=== PATIENT | female | born 1945 | race Caucasian/White ===

== ENCOUNTER 2019-01-27 23:48 | Inpatient (IN) | payer OTHER ==
[2019-01-28] MEDS ORDERED: ONDANSETRON 4 MG/2 ML VIAL ONE (00:14)
[2019-01-28] MEDS ORDERED: MORPHINE 4 MG/ML SYR ONE (00:14)
[2019-01-28] MEDS ORDERED: NA CHLORIDE 0.9% 500 ML ONE (00:14)
[2019-01-28 00:47] LABS: Absolute Lymphocytes (CBC) 2.8 K/uL (0.7-4.9); Basophils % 1.2 % (0-1.3); MPV 7.3 fL (7.6-11.3); RBC Red Blood Cell Count 4.34 M/uL (3.86-4.86)
[2019-01-28 00:52] LABS: Protime INR 1.02
[2019-01-28 01:10] LABS: ALT/SGPT 33 U/L (12-78); AST/SGOT 24 U/L (15-37); Albumin 3.7 g/dL (3.4-5.0); Alkaline Phosphatase 151 U/L (45-117); BUN Blood Urea Nitrogen 15 mg/dL (7-18); Bicarbonate 22 mmol/L (21-32); Bilirubin Direct < 0.1 mg/dL (0-0.2); Bilirubin Total 0.4 mg/dL (0.2-1.0); Glucose Level 114 mg/dL (74-106); Lipase 128 U/L (73-393); Magnesium 1.8 mg/dL (1.8-2.4); NT PRO-BNP 29 pg/mL (<125); Potassium 3.7 mmol/L (3.5-5.1); Protein, Total 7.6 g/dL (6.4-8.2); Sodium Level 139 mmol/L (136-145); Troponin (Emerg Dept Use Only) < 0.02 ng/mL (0.0-0.045)
[2019-01-28 01:52] LABS: Urine Blood NEGATIVE (NEG); Urine Glucose NEGATIVE (NEG); Urine Protein NEGATIVE (NEG); Urine Specific Gravity 1.015 (1.005-1.030)
[2019-01-28 01:56] LABS: Urine Bacteria >50 /HPF (<20); Urine Culture Reflex Order REFLEXED; Urine RBC NONE SEEN /HPF (NONE SEEN)
[2019-01-28] MEDS ORDERED: CEFTRIAXONE/SWI 1gm 1 GM/10 ML SYR ONE (02:22)
--- NOTE | 2019-01-28 02:27 | ER ---
Nurse's Notes [facility] Name: Jennifer Moeller Age: 73 yrs Sex: Female : 1945 Arrival Date: 01/27/2019 Time: 23:49 Bed 20 Private MD: Diagnosis: Acute cholecystitis Presentation: 01/27 23:55 Presenting complaint: Patient states: that she has been having right upper quad pain fc since Thursday. Went to another hospital and Was told her gallbladder is bad. Her PCP scheduled her for a HIDA scan 01/28/2019 am. Transition of care: patient was not received from another setting of care. Onset of symptoms was January 22, 2019. Risk Assessment: Do you want to hurt yourself or someone else? Patient reports no desire to harm self or others. Initial Sepsis Screen: Does the patient meet any 2 criteria? No. Patient's initial sepsis screen is negative. Does the patient have a suspected source of infection? No. Patient's initial sepsis screen is negative. Care prior to arrival: None. 23:55 Method Of Arrival: Wheelchair 23:55 Acuity: NEFTALI 3 fc Triage Assessment: 01/28 00:42 General: Behavior is calm, cooperative, appropriate for age. Historical: - Allergies: 00:07 Codeine; fc 00:07 Iodine; fc 00:07 Ciprofloxacin; fc - Home Meds: 00:07 None [Active]; fc - PMHx: 00:07 Diabetes - NIDDM; fc - PSHx: 00:07 Hysterectomy; fc - Immunization history:: Last tetanus immunization: up to date Flu vaccine is not up to date. - Social history:: Smoking status: Patient/guardian denies using tobacco, Patient uses alcohol, occasionally. - Ebola Screening: : Patient negative for fever greater than or equal to 101.5 degrees Fahrenheit, and additional compatible Ebola Virus Disease symptoms Patient denies exposure to infectious person Patient denies travel to an Ebola-affected area in the 21 days before illness onset. Screenin/10 23:55 Abuse screen: Denies threats or abuse. Nutritional screening: No deficits noted. fc Tuberculosis screening: No symptoms or risk factors identified. Fall Risk None identified. Assessment: 01/28 00:40 General: Appears in no apparent distress. uncomfortable. Pain: Complains of pain in wh right upper quadrant Pain radiates to back Pain currently is 10 out of 10 on a pain scale. Quality of pain is described as aching, Pain began 2-3 days ago. Neuro: Level of Consciousness is awake, alert, obeys commands, Oriented to person, place, time, situation, Appropriate for age. Cardiovascular: Heart tones S1 S2 Rhythm is regular. Respiratory: Airway is patent Respiratory effort is even, unlabored, Respiratory pattern is regular, symmetrical, Breath sounds are clear bilaterally. GI: Abdomen is flat, non-distended, Bowel sounds present X 4 quads. Abd is soft Abdomen is tender to palpation in right upper quadrant. : No signs and/or symptoms were reported regarding the genitourinary system. EENT: No signs and/or symptoms were reported regarding the EENT system. Derm: Skin is intact, is healthy with good turgor, Skin is pink, warm \T\ dry. normal. Musculoskeletal: Circulation, motion, and sensation intact. 02:02 Reassessment: Patient appears in no apparent distress at this time. No changes from previously documented assessment. Patient and/or family updated on plan of care and expected duration. Pain level reassessed. Patient is alert, oriented x 3, equal unlabored respirations, skin warm/dry/pink. Patient states feeling better. Patient states symptoms have improved. 03:10 Reassessment: Patient appears in no apparent distress at this time. No changes from previously documented assessment. Patient and/or family updated on plan of care and expected duration. Pain level reassessed. Patient is alert, oriented x 3, equal unlabored respirations, skin warm/dry/pink. Dr Franklin at bedside explaining need for admit. 03:39 Reassessment: Patient denies pain at this time. Patient states feeling better. Patient wh states symptoms have improved. Vital Signs: 01/27 23:55 BP 176 / 99; Pulse 81; Resp 18; Temp 97.6(O); Pulse Ox 99% on R/A; Weight 73.48 kg (R); Height 5 ft. 5 in. (165.10 cm) (R); Pain 01/27; 01/28 00:15 BP 178 / 76; Pulse 75; Resp 18; Pulse Ox 100% ; wh 02:02 BP 125 / 69; Pulse 67; Resp 18; Pulse Ox 98% on R/A; wh 03:15 BP 124 / 50; Pulse 64; Resp 18; Pulse Ox 98% ; 01/27 23:55 Body Mass Index 26.96 (73.48 kg, 165.10 cm) ED Course: 01/27 23:49 Patient arrived in ED. ds1 23:53 Blu Mena PA is PHCP. cp 23:53 Rl Fernandez MD is Attending Physician. cp 23:55 Arm band placed on Patient placed in an exam room, on a stretcher. fc 23:55 Patient has correct armband on for positive identification. Placed in gown. Bed in low fc position. Call light in reach. Side rails up X 1. Pulse ox on. NIBP on. 23:55 No provider procedures requiring assistance completed. fc 23:57 Susan Fuchs is Primary Nurse. 01/28 00:05 Triage completed. 00:35 Inserted saline lock: 20 gauge in left forearm, using aseptic technique. Blood wh collected. 00:49 Radiology exam delayed due to lab results not completed at this time. (BUN/Creatinine). [id number] 00:53 XRAY Chest (1 view) In Process Unspecified. EDMS 01:32 CT Abd/Pelvis - Without Contrast In Process Unspecified. EDMS 02:25 Angel Franklin MD is Hospitalizing Provider. cp 03:40 Patient admitted, IV remains in place. Administered Medications: 00:34 Drug: morphine 4 mg {Note: RASS 0.} Route: IVP; Site: left forearm; 03:15 Follow up: Response: No adverse reaction; Nausea is decreased 03:16 Follow up: Response: Pain is decreased; RASS: Alert and Calm (0) 00:34 Drug: Zofran 4 mg Route: IVP; Site: left forearm; 03:17 Follow up: Response: No adverse reaction; Nausea is decreased 00:35 Drug: NS 0.9% 500 ml Route: IV; Rate: 500 ml/hr; Site: left forearm; 03:18 Follow up: Response: No adverse reaction; IV Status: Completed infusion 02:28 Drug: Rocephin 1 grams Route: IV; Rate: bolus; Site: left forearm; 03:17 Follow up: Response: No adverse reaction; IV Status: Completed infusion Outcome: 02:25 Decision to Hospitalize by Provider. cp 03:40 Admitted to Med/surg accompanied by tech, family with patient, via wheelchair, room wh 225, with chart, Report called to Annamarie Lino RN 03:40 Condition: good 03:40 Instructed on the need for admit. 03:41 Patient left the ED. Signatures: Dispatcher [employer] EDMS Aiyana Jane RN RN fc Sanford, Demi ds1 Blu Mena PA PA cp Habalo, Winsy Rebecca Cason6
--- NOTE | 2019-01-28 02:27 | EDPHYS ---
Physician Documentation [facility] Name: Jennifer Moeller Age: 73 yrs Sex: Female : 1945 Arrival Date: 01/27/2019 Time: 23:49 Bed 20 Private MD: ED Physician Rl Fernandez HPI: 01/28 00:05 This 73 yrs old Female presents to ER via Wheelchair with complaints of cp Gallbladder Pain. 00:05 The patient presents with abdominal pain in the right upper quadrant. cp 00:05 Onset: The symptoms/episode began/occurred 6 day(s) ago. cp 00:05 The symptoms radiate to back. Associated signs and symptoms: Pertinent positives: cp anorexia, nausea, Pertinent negatives: chest pain, dysuria, fever, vomiting. The symptoms are described as constant. Modifying factors: the symptoms are aggravated by movement, pressure. Severity of pain: in the emergency department the pain is unchanged despite home interventions. Historical: - Allergies: 00:07 Codeine; fc 00:07 Iodine; fc 00:07 Ciprofloxacin; fc - Home Meds: 00:07 None [Active]; fc - PMHx: 00:07 Diabetes - NIDDM; fc - PSHx: 00:07 Hysterectomy; fc - Immunization history:: Last tetanus immunization: up to date Flu vaccine is not up to date. - Social history:: Smoking status: Patient/guardian denies using tobacco, Patient uses alcohol, occasionally. - Ebola Screening: : Patient negative for fever greater than or equal to 101.5 degrees Fahrenheit, and additional compatible Ebola Virus Disease symptoms Patient denies exposure to infectious person Patient denies travel to an Ebola-affected area in the 21 days before illness onset. ROS: 00:10 Constitutional: Negative for body aches, chills, fever, poor PO intake. cp 00:10 Eyes: Negative for injury, pain, redness, and discharge. cp 00:10 ENT: Negative for drainage from ear(s), ear pain, sore throat, difficulty swallowing, difficulty handling secretions. 00:10 Cardiovascular: Negative for chest pain, edema, palpitations. 00:10 Respiratory: Negative for cough, shortness of breath, wheezing. 00:10 Abdomen/GI: Positive for abdominal pain, Negative for vomiting, diarrhea, constipation, black/tarry stool, rectal bleeding. 00:10 Back: Positive for radiated pain, Negative for injury or acute deformity, decreased range of motion. 00:10 : Negative for urinary symptoms. 00:10 Neuro: Negative for altered mental status, weakness. 00:10 All other systems are negative. Exam: 00:25 ECG was reviewed by the Attending Physician. cp 00:30 Constitutional: The patient appears in no acute distress, alert, awake, cp non-diaphoretic, non-toxic, well developed, well nourished, in obvious pain, uncomfortable. 00:30 Head/Face: Normocephalic, atraumatic. cp 00:30 Eyes: Periorbital structures: appear normal, Conjunctiva: normal, no exudate, no injection, Sclera: no appreciated abnormality, Lids and lashes: appear normal, bilaterally. 00:30 ENT: External ear(s): are unremarkable, Nose: is normal, Mouth: Lips: moist, Oral mucosa: pink and intact, moist, Posterior pharynx: is normal, airway is patent, no erythema, no exudate. 00:30 Chest/axilla: Inspection: normal, Palpation: is normal, no crepitus, no tenderness. 00:30 Cardiovascular: Rate: normal, Rhythm: regular, Edema: is not appreciated, JVD: is not appreciated. 00:30 Respiratory: the patient does not display signs of respiratory distress, Respirations: normal, no use of accessory muscles, no retractions, no splinting, no tachypnea, labored breathing, is not present, Breath sounds: are clear throughout, no decreased breath sounds, no stridor, no wheezing. 00:30 Abdomen/GI: Inspection: abdomen appears normal, Bowel sounds: active, all quadrants, Palpation: soft, in all quadrants, severe abdominal tenderness, in the right upper quadrant, rebound tenderness, is not appreciated, voluntary guarding, is elicited in the right upper quadrant. 00:30 Back: pain, that is moderate, ROM is normal. 00:30 Skin: no rash present. 00:30 Neuro: Orientation: to person, place \T\ time. Mentation: is normal, Motor: moves all fours, strength is normal. Vital Signs: 01/27 23:55 BP 176 / 99; Pulse 81; Resp 18; Temp 97.6(O); Pulse Ox 99% on R/A; Weight 73.48 kg (R); fc Height 5 ft. 5 in. (165.10 cm) (R); Pain 01/27; 01/28 00:15 BP 178 / 76; Pulse 75; Resp 18; Pulse Ox 100% ; wh 02:02 BP 125 / 69; Pulse 67; Resp 18; Pulse Ox 98% on R/A; wh 03:15 BP 124 / 50; Pulse 64; Resp 18; Pulse Ox 98% ; wh 01/27 23:55 Body Mass Index 26.96 (73.48 kg, 165.10 cm) fc MDM: 01/27 23:57 Patient medically screened. cp 01/28 00:30 Differential diagnosis: cholecystitis, Cholelithiasis, gastritis, gastroesophageal cp reflux disease, pancreatitis, Peptic Ulcer Disease, Perf. Duodenal Ulcer, Perf. Gastric Ulcer, Ureterolithiasis, urinary tract infection. 02:25 Data reviewed: vital signs, nurses notes, lab test result(s), EKG, radiologic studies, cp CT scan, plain films. 02:25 Test interpretation: by ED physician or midlevel provider: ECG, plain radiologic cp studies, chest xray negative for infiltrates. Counseling: I had a detailed discussion with the patient and/or guardian regarding: the historical points, exam findings, and any diagnostic results supporting the discharge/admit diagnosis, lab results, radiology results, the need for further work-up and treatment in the hospital. Response to treatment: the patient's symptoms have markedly improved after treatment. 01/28 00:11 Order name: Basic Metabolic Panel; Complete Time: : rr5 01/28 01:47 Interpretation: Normal except: GLUC 114; GFR 64. cp 01/28 00:11 Order name: CBC with Diff; Complete Time: 00:58 rr5 01/28 00:58 Interpretation: Normal except: WBC 12.6; MPV 7.3; NEUT A 8.3. cp 01/28 00:11 Order name: LFT's; Complete Time: : rr5 01/28 01:47 Interpretation: Normal except: ALK 151; GLOB 3.9; A/G 0.9. cp 01/28 00:11 Order name: Magnesium; Complete Time: :29 rr5 01/28 00:11 Order name: NT PRO-BNP; Complete Time: : rr5 01/28 00:11 Order name: PT-INR; Complete Time: 00:58 [facility] 01/28 00:11 Order name: Troponin (emerg Dept Use Only); Complete Time: 01:29 [facility] 01/28 01:47 Interpretation: TROPED < 0.02; Reviewed. 01/28 00:11 Order name: Lipase; Complete Time: 01:29 [facility] 01/28 01:48 Interpretation: Within normal limits: LIP 128. 01/28 00:11 Order name: XRAY Chest (1 view) [facility] 01/28 00:11 Order name: EKG; Complete Time: 00:12 5 01/28 00:14 Order name: EKG; Complete Time: 00:16 01/28 00:57 Order name: CT Abd/Pelvis - Without Contrast 01/28 00:59 Order name: Urine Microscopic Only; Complete Time: 02:18 01/28 02:18 Interpretation: Normal except: UWBC 5-10; UBACT >50. 01/28 01:48 Order name: Urine Dipstick--Ancillary (enter results); Complete Time: 01:56 em 01/28 01:56 Interpretation: Normal except: UESTR 1+. 01/28 01:57 Order name: Urine Culture [facility] 01/28 02:59 Order name: CONS Physician Consult [facility] 01/28 02:59 Order name: Urinalysis [facility] 01/28 00:11 Order name: Cardiac monitoring; Complete Time: 00:34 [facility] 01/28 00:11 Order name: EKG - Nurse/Tech; Complete Time: 00:34 [facility] 01/28 00:11 Order name: IV Saline Lock; Complete Time: 00:34 5 01/28 00:11 Order name: Labs collected and sent; Complete Time: 00:34 5 01/28 00:11 Order name: O2 Per Protocol; Complete Time: 00:33 [facility] 01/28 00:11 Order name: O2 Sat Monitoring; Complete Time: 00:33 [facility] 01/28 00:14 Order name: Cardiac monitoring; Complete Time: 00:33 01/28 00:14 Order name: EKG - Nurse/Tech; Complete Time: 00:33 cp 01/28 00:14 Order name: IV Saline Lock; Complete Time: 00:33 01/28 00:14 Order name: Labs collected and sent; Complete Time: 00:33 cp 01/28 00:14 Order name: O2 Per Protocol; Complete Time: 00:33 cp 01/28 00:14 Order name: O2 Sat Monitoring; Complete Time: 00:33 cp 01/28 00:59 Order name: Urine Dipstick-Ancillary (obtain specimen); Complete Time: 01:45 cp 01/28 02:59 Order name: NPO EDMS EC:25 Rate is 75 beats/min. Rhythm is regular. NC interval is normal. QRS interval is normal. cp QT interval is normal. Interpreted by me. Reviewed by me. Administered Medications: 00:34 Drug: morphine 4 mg {Note: RASS 0.} Route: IVP; Site: left forearm; 03:15 Follow up: Response: No adverse reaction; Nausea is decreased 03:16 Follow up: Response: Pain is decreased; RASS: Alert and Calm (0) 00:34 Drug: Zofran 4 mg Route: IVP; Site: left forearm; 03:17 Follow up: Response: No adverse reaction; Nausea is decreased 00:35 Drug: NS 0.9% 500 ml Route: IV; Rate: 500 ml/hr; Site: left forearm; 03:18 Follow up: Response: No adverse reaction; IV Status: Completed infusion 02:28 Drug: Rocephin 1 grams Route: IV; Rate: bolus; Site: left forearm; 03:17 Follow up: Response: No adverse reaction; IV Status: Completed infusion Disposition: 06:33 Co-signature as Attending Physician, Rl Fernandez MD. rn Disposition: 01/28/19 02:25 Hospitalization ordered by Angel Franklin for Inpatient Admission. Preliminary diagnosis is Acute cholecystitis. - Bed requested for Telemetry/MedSurg (Inpatient). - Status is Inpatient Admission. - Condition is Stable. - Problem is new. - Symptoms have improved. UTI on Admission? Yes Signatures: Dispatcher [employer] EDSD Aiyana Jaen RN RN fc Nieto, Roman, MD MD rn Page, Corey, PA PA cp Habalo, Winsy Go Emanuel RN RN rr5 Corrections: (The following items were deleted from the chart) 00:58 00:58 Normal except: WBC 12.6; MPV 7.3. cp cp 01:01 00:16 Chest Single View+RAD.RAD.BRZ ordered. EDMS EDMS 01:05 00:16 PROTIME (+INR)+COAG.LAB.BRZ ordered. EDMS EDMS 01:06 00:16 CBC+H.LAB.BRZ ordered. EDMS EDMS 01:07 00:16 BASIC METABOLIC PANEL+C.LAB.BRZ ordered. EDMS EDMS 01:07 00:16 HEPATIC FUNCTION+C.LAB.BRZ ordered. EDMS EDMS 01:07 00:16 MAGNESIUM+C.LAB.BRZ ordered. EDMS EDMS 01:07 00:16 PROBNP+C.LAB.BRZ ordered. EDSD EDMS 01:07 00:16 TROPONIN (EMERG DEPT USE ONLY)+C.LAB.BRZ ordered. EDSD EDMS 01:32 00:12 Abdomen Pelvis W Con+CT.RAD.BRZ ordered. EDSD EDMS 02:58 02:25 Hospitalization Ordered by Angel Franklin MD for Inpatient Admission. Preliminary rr5 diagnosis is Acute cholecystitis. Bed requested for Telemetry/MedSurg (Inpatient). Status is Inpatient Admission. Condition is Stable. Problem is new. Symptoms have improved. UTI on Admission? Yes. cp 03:41 02:58 01/28/2019 02:25 Hospitalization Ordered by Angel Franklin MD for Inpatient Admission. Preliminary diagnosis is Acute cholecystitis. Bed requested for Telemetry/MedSurg (Inpatient). Status is Inpatient Admission. Condition is Stable. Problem is new. Symptoms have improved. UTI on Admission? Yes. rr5
[2019-01-28] MEDS ORDERED: ACETAMINOPHEN 500 MG TAB PO PRN (02:56)
[2019-01-28] MEDS ORDERED: ONDANSETRON 4 MG/2 ML VIAL IV PRN (02:56)
[2019-01-28] MEDS ORDERED: ALPRAZOLAM 0.25 MG TABLET PO PRN (02:56)
[2019-01-28] MEDS ORDERED: MORPHINE 4 MG/ML SYR IV PRN (02:59)
[2019-01-28] MEDS: NA CHLORIDE 0.9% 1,000 ML IV SCH ×2 (03:00→13:00)
[2019-01-28 03:44] VITALS: BMI 28.4
[2019-01-28] MEDS ORDERED: FENTANYL CITR 100 MCG/2 ML IV PRN (04:21)
[2019-01-28] MEDS ORDERED: PIPER/TAZO/NS 3.375gm 3.375 GM/100 ML BAG IVPB SCH (06:00)
--- NOTE | 2019-01-28 08:19 | RAD REPORT ---
EXAM DESCRIPTION: Love Single View01/28/2019 12:53 am CLINICAL HISTORY: Abdominal pain COMPARISON: none FINDINGS: The lungs appear clear of acute infiltrate. The heart is borderline enlarged IMPRESSION: No acute abnormalities displayed
--- NOTE | 2019-01-28 08:22 | P.HP ---
Certification for Inpatient Patient admitted to: Inpatient With expected LOS: >2 Midnights Patient will require the following post-hospital care: None Practitioner: I am a practitioner with admitting privileges, knowledge of patient current condition, hospital course, and medical plan of care. Services: Services provided to patient in accordance with Admission requirements found in Title 42 Section 412.3 of the Code of Federal Regulations Patient History Date of Service: 01/28/19 Reason for admission: Acute cholecystitis History of Present Illness: Patient is a 73-year-old female came to the hospital with abdominal pain. She has been having symptoms on an off for the last year. Her symptoms pretty much worse so she came back into the ER for further evaluation. In the emergency room her workup included labs and CT scan. The labs were essentially unremarkable except for mildly elevated alkaline phosphatase. However, her CT scan revealed possible acute cholecystitis. General surgery was notified. Patient was admitted to the hospital for further evaluation. Possible HIDA scan this morning. May need ultrasound pending surgery evaluation. Allergies ciprofloxacin Allergy (Verified 01/28/19 04:12) Itching/Hives/Rash codeine Allergy (Verified 01/28/19 04:13) Shortness of breath iodine Adverse Reaction (Verified 01/28/19 04:11) Nausea/Vomiting Home Medications: Methocarbamol 500 mg PO QID MDD 7 days 01/28/19 Nitrofurantoin Monohyd/M-Cryst [Nitrofurantoin [place]-Mcr 100 mg] 100 mg PO Q12HR MDD 15 days 01/28/19 - Past Medical/Surgical History Has patient received pneumonia vaccine in the past: No Diabetic: Yes -: Diabetes -: Hysterectomy - Family History Father Medical History: Cancer, Other (see notes) Notes: Ca of throat,rectum Mother Medical History: Cancer, Other (see notes) Notes: Panic attacks. Ca breast - Social History Smoking Status: Never smoker Alcohol use: Yes CD- Drugs: No Caffeine use: Yes Place of Residence: Home Review of Systems 10-point ROS is otherwise unremarkable Physical Examination - Vital Signs Temperature: 96.8 F Blood Pressure: 148/68 Pulse: 67 Respirations: 16 Pulse Ox (%): 99 - Physical Exam General: Alert, In no apparent distress, Oriented x3 HEENT: Atraumatic, PERRLA, Mucous membr. moist/pink, EOMI, Sclerae nonicteric Neck: Supple, 2+ carotid pulse no bruit, No LAD, Without JVD or thyroid abnormality Respiratory: Clear to auscultation bilaterally, Normal air movement Cardiovascular: Regular rate/rhythm, Normal S1 S2, No murmurs Gastrointestinal: Normal bowel sounds, Soft and benign, Non-distended, No rebound, No guarding, Tenderness Musculoskeletal: No clubbing, No swelling, No tenderness Integumentary: No rashes Neurological: Normal gait, Normal speech, Normal strength at 5/5 x4 extr, Normal tone, Sensation intact, Cranial nerves 3-12 intact, Normal affect Lymphatics: No axilla or inguinal lymphadenopathy - Studies Laboratory Data (last 24 hrs) 01/28/19 00:14: PT Cancelled, INR Cancelled 01/28/19 00:14: WBC Cancelled, Hgb Cancelled, Hct Cancelled, Plt Count Cancelled 01/28/19 00:14: Sodium Cancelled, Potassium Cancelled, BUN Cancelled, Creatinine Cancelled, Glucose Cancelled, Magnesium Cancelled, Total Bilirubin Cancelled, AST Cancelled, ALT Cancelled, Alkaline Phosphatase Cancelled 01/28/19 00:10: PT 12.0, INR 1.02 01/28/19 00:10: WBC 12.6 H, Hgb 14.3, Hct 41.0, Plt Count 367 01/28/19 00:10: Sodium 139, Potassium 3.7, BUN 15, Creatinine 0.87, Glucose 114 H, Magnesium 1.8, Total Bilirubin 0.4, AST 24, ALT 33, Alkaline Phosphatase 151 H, Lipase 128 Assessment & Plan - Problems (Diagnosis) (1) Acute cholecystitis Current Visit: Yes Status: Acute (2) DM2 (diabetes mellitus, type 2) Current Visit: Yes Status: Acute - Plan Plan: 1. IV hydration 2. IV antibiotics 3. Pain control 4. Surgery consultation 5. Further diagnostic studies per surgery 6. Possible laparoscopic cholecystectomy pending evaluation per General surgery 7. GI and DVT prophylaxis Discharge Plan: Home Plan to discharge in: Greater than 2 days - Advance Directives Does patient have a Living Will: No Does patient have a Durable POA for Healthcare: No - Code Status/Comfort Care Code Status Assessed: Yes Code Status: Full Code Critical Care: No Time Spent Managing PTS Care (In Minutes): 45
--- NOTE | 2019-01-28 11:25 | CON ---
Date of Consultation: 01/28/2019 Brief History Of Present Illness: The patient is a 73-year-old female who came to the hosp ital with abdominal pain. She has been having symptoms off and on for the last year, but never of th is level of severity. The pain was predominantly in the epigastric area with radiation to the right upper quadrant and radiation through to her back. She had described this with never with this level of intensity. She went to see her primary medical doctor who ordered a HIDA scan, however, she did n ot have time to get the HIDA scan performed on an emergent basis and as such, she had another episode of pain and came to the emergency room with the above-stated complaints. Past Medical History: Significant for diabetes. Past Surgical History: She had hysterectomy. Allergies: TO CIPRO, CODEINE, IODINE. Home Medications: Include methocarbamol, nitrofurantoin. Social History: She denies smoking, only uses alcohol recreationally. Denies any recreational drug use of any kind. Review of Systems: A 10-point review of systems other than HPI, denies. Physical Examination: Vital Signs: At the time of my examination, her BMI is 28.4. Her vital signs were blood pressure 14 0/68, pulse of 67, respiratory rate 16, temperature 96.8. General: She is awake, alert, oriented. Psychiatric: She is appropriate and conversive. HEENT: She is normocephalic. Sclerae are anicteric. Her mucous membranes are moist. Oropharynx cl ear. Neck: Supple. No JVD. Chest: Normal expansion and excursion. Cardiovascular: Regular rate and rhythm. Pulmonary: Clear to auscultation bilaterally. Abdomen: Soft with mild right upper quadrant tenderness to palpation. Positive epigastric tendernes s to palpation. Negative Gamble sign at this time. No focal peritoneal signs. Extremities: No clubbing, cyanosis, or edema. Skin: Warm and dry. Laboratory Data: Reveals a white blood cell count of 12.6, hemoglobin is 14.3, hematocrit of 41.0, p latelet count is 367. Her neutrophils were 66%. Her PT is 12.0. Her sodium is 139, potassium 3.7, chloride 106, carbon dioxide 22, BUN 15, creatinine 0.8, glucose is 114. Her magnesium 1.8, total bi lirubin 0.4, direct component less than 0.1, AST 24, ALT 33, alkaline phosphatase of 151, lipase is 1 28. UA showed 5 to 10 white blood cells and greater than 50 bacteria. She had an abdomen and pelvis CT performed, which was officially read as gallstones with a mildly distended gallbladder, questiona ble subtle infiltrates and a pericholecystic fat in the setting of early acute cholecystitis. Consid er ultrasound for further evaluation. No gallbladder wall thickening. Assessment And Plan: This is a 73-year-old female, who comes in with signs of likely acute cholecyst itis: 1.IV fluid hydration. 2.Antibiotic coverage with Zosyn 3.375. 3.Patient is scheduled for HIDA scan. We will follow up with this. 4.I have explained the risks, benefits, alternatives of laparoscopic, possible open cholecystectomy including but not limited to bleeding, infection, injury to bile ducts, intestines, need for further operation or procedures. Patient agrees to proceed as indicated. ALISON/JERED Voice ID: [id number] Report ID: [id number]
--- NOTE | 2019-01-28 11:26 | EKG ---
Test Date: 2019-01-28 Test Time: 00:17:27 Dice Dealer: BASILIO MEASUREMENT RESULTS: Intervals: Rate: 75 OR: 162 QRSD: 72 QT: 398 QTc: 444 Huger: P: 59 OR: 162 QRS: 36 T: 56 INTERPRETIVE STATEMENTS: Normal sinus rhythm Low voltage QRS Borderline ECG No previous ECG available for comparison Electronically Signed On 01-28-19 11:26:24 CDT by Will Young
--- NOTE | 2019-01-28 11:40 | P.PN ---
Subjective Date of Service: 01/28/19 Chief Complaint: Acute cholecystitis Subjective: No new changes Patient seen and examined. She denies abdominal pain at the moment and want to eat. She has been afebrile. Physical Examination - Vital Signs Temperature: 96.8 F Blood Pressure: 148/68 Pulse: 67 Respirations: 16 Pulse Ox (%): 99 - Physical Exam General: Alert, In no apparent distress, Oriented x3 HEENT: Mucous membr. moist/pink Neck: Supple, JVD not distended Respiratory: Clear to auscultation bilaterally, Normal air movement Cardiovascular: No edema, Normal pulses, Regular rate/rhythm, Normal S1 S2, No murmurs Capillary refill: <2 Seconds Gastrointestinal: Normal bowel sounds, Soft and benign, Non-distended, Tenderness (Mild epigastric tenderness) Musculoskeletal: No swelling Integumentary: No rashes - Studies Laboratory Data (last 24 hrs) 01/28/19 00:14: PT Cancelled, INR Cancelled 01/28/19 00:14: WBC Cancelled, Hgb Cancelled, Hct Cancelled, Plt Count Cancelled 01/28/19 00:14: Sodium Cancelled, Potassium Cancelled, BUN Cancelled, Creatinine Cancelled, Glucose Cancelled, Magnesium Cancelled, Total Bilirubin Cancelled, AST Cancelled, ALT Cancelled, Alkaline Phosphatase Cancelled 01/28/19 00:10: PT 12.0, INR 1.02 01/28/19 00:10: WBC 12.6 H, Hgb 14.3, Hct 41.0, Plt Count 367 01/28/19 00:10: Sodium 139, Potassium 3.7, BUN 15, Creatinine 0.87, Glucose 114 H, Magnesium 1.8, Total Bilirubin 0.4, AST 24, ALT 33, Alkaline Phosphatase 151 H, Lipase 128 Assessment And Plan - Current Problems (Diagnosis) (1) Acute cholecystitis Current Visit: Yes Status: Acute (2) DM2 (diabetes mellitus, type 2) Current Visit: Yes Status: Acute - Plan HIDA scan is pending Patient seen by Dr. Rios and planning a cholecystectomy pending HIDA scan result. Continue IV Zosyn. Diabetes is diet controlled.
--- NOTE | 2019-01-28 11:58 | RAD REPORT ---
EXAM DESCRIPTION: NM - Hepatobiliary System Imagin - 01/28/2019 11:34 am CLINICAL HISTORY: Abdominal pain TECHNIQUE: The patient was administered 6.2 millicuries technetium Choletec intravenous and images o f the abdomen obtained for approximately 3 hours and 10 minutes. FINDINGS: Liver demonstrates prompt radiotracer uptake. No activity is seen within the gallbladder throughout the examination. Radiotracer activity is seen within small bowel. IMPRESSION: No radiotracer activity visualized within the gallbladder probably indicating acute chol ecystitis
[2019-01-28] MEDS: PIPER/TAZO/NS 3.375gm 3.375 GM/100 ML BAG IVPB SCH (17:26)
[2019-01-28] MEDS: ENOXAPARIN 40 MG/0.4 ML SQ SCH (17:31)
[2019-01-28] MEDS ORDERED: MAGNESIUM SULFATE 1 gm IVPB 1 GM/100 ML BAG IV ONE (21:00)
[2019-01-28] MEDS ORDERED: POTASSIUM CL SA 10 MEQ TAB PO ONE (21:00)
[2019-01-29] MEDS: PIPER/TAZO/NS 3.375gm 3.375 GM/100 ML BAG IVPB SCH ×3 (01:32→17:36)
[2019-01-29 05:01] LABS: Absolute Lymphocytes (CBC) 2.8 K/uL (0.7-4.9); Basophils % 0.7 % (0-1.3); Hematocrit 40.9 % (36.0-45.0); Lymphocytes % 33.3 % (15.3-44.8); MPV 7.3 fL (7.6-11.3); RBC Red Blood Cell Count 4.24 M/uL (3.86-4.86)
[2019-01-29 05:08] LABS: Albumin 3.2 g/dL (3.4-5.0); Bilirubin Total 0.9 mg/dL (0.2-1.0); Potassium 4.4 mmol/L (3.5-5.1); Protein, Total 6.6 g/dL (6.4-8.2)
[2019-01-29] MEDS: ENOXAPARIN 40 MG/0.4 ML SQ SCH (08:17)
[2019-01-29] MEDS ORDERED: BUPIVACA 0.5%/EPI 0.0005%/PF 30 ML VIAL ONE (08:35)
[2019-01-29] MEDS ORDERED: MIDAZOLAM HCL 2 MG/2 ML INJ ONE (08:43)
[2019-01-29] MEDS ORDERED: FENTANYL CITR 100 MCG/2 ML ONE (08:43)
[2019-01-29] MEDS ORDERED: PROPOFOL 200 MG/20 ML VIAL IV ONE (08:43)
[2019-01-29] MEDS ORDERED: GLYCOPYRROLATE 0.2 MG/ML SYR ONE (08:43)
[2019-01-29] MEDS ORDERED: ROCURONIUM 50 MG/5 ML VIAL IV ONE (08:44)
[2019-01-29] MEDS ORDERED: KETOROLAC 30 MG/ML INJ ONE (08:44)
[2019-01-29] MEDS ORDERED: LIDOCAINE 1% MPF 5 ML VIAL ONE (08:44)
[2019-01-29] MEDS ORDERED: NEOSTIGMINE 1 MG/ML -10 ML VIAL ONE (08:44)
[2019-01-29] MEDS ORDERED: ONDANSETRON 4 MG/2 ML VIAL ONE (08:44)
[2019-01-29] MEDS ORDERED: MORPHINE 10 MG/ML VIAL ONE (08:44)
[2019-01-29] MEDS ORDERED: Ringers Lactate 1,000 ML IV ONE (08:51)
--- NOTE | 2019-01-29 10:16 | P.OP ---
Preoperative diagnosis: Acute Cholecystitis Postoperative diagnosis: Acute Cholecystitis Primary procedure: Laparoscopic Cholecystectomy Anesthesia: GETA + Local Estimated blood loss: <5cc Specimen: Gallbladder Findings: Gross Inflammation, Thick Adhesions Complications: None Transferred to: Recovery Room Condition: Good
[2019-01-29] MEDS: HYDROMORPHONE HCL 1 MG/ML INJ ONE ×2 (10:40→10:45)
--- NOTE | 2019-01-29 10:44 | P.PN ---
Subjective Date of Service: 01/29/19 Chief Complaint: Acute cholecystitis Patient seen and examined. She denies abdominal pain at the moment. She has been afebrile. Noted her liver enzymes elevated today. Physical Examination - Vital Signs Temperature: 97.2 F Blood Pressure: 136/67 Pulse: 70 Respirations: 20 Pulse Ox (%): 96 - Physical Exam General: Alert, In no apparent distress, Oriented x3 HEENT: Mucous membr. moist/pink Neck: Supple, JVD not distended Respiratory: Clear to auscultation bilaterally, Normal air movement Cardiovascular: No edema, Regular rate/rhythm, Normal S1 S2, No murmurs Gastrointestinal: Normal bowel sounds, Soft and benign, Non-distended, No tenderness Musculoskeletal: No swelling Integumentary: No rashes Assessment And Plan - Current Problems (Diagnosis) (1) Acute cholecystitis Current Visit: Yes Status: Acute (2) DM2 (diabetes mellitus, type 2) Current Visit: Yes Status: Acute (3) Elevated LFTs Current Visit: Yes Status: Acute - Plan HIDA scan highly suggestive of acute cholecystitis. Laparoscopic cholecystectomy performed today. Monitor LFT for improvement, otherwise patient will need an MRCP to evaluate for common bile duct for stones. Continue IV Zosyn. Diet resumption per Surgery. Pain management.
[2019-01-29] MEDS: MEPERIDINE HCL 25 MG/0.5 ML ONE ×2 (10:53→11:05)
[2019-01-29] MEDS ORDERED: ACETAMINOPHEN 500 MG TAB ONE (17:31)
[2019-01-29] MEDS: NA CHLORIDE 0.9% 1,000 ML IV SCH (19:00)
--- NOTE | 2019-01-29 20:32 | OP ---
Date of Procedure: 01/29/2019 Surgeon: Corey Rios MD, Preoperative Diagnosis: Acute calculous cholecystitis. Postoperative Diagnosis: Acute calculous cholecystitis. Procedure Performed: Laparoscopic cholecystectomy. Anesthesia: General endotracheal plus local and 0.5% Marcaine with epinephrine. Estimated Blood Loss: Less than 5 mL. Specimen: Gallbladder. Findings: 1.Grossly inflamed gallbladder. 2.Thick fibrous adhesions between the omentum and the anterior gallbladder extending all the way teodoro n to the triangle of Calot. 3.Thick viscous bile unable to be adequately suctioned with suction device. Complications: None. Condition: Transferred to recovery room in good condition. Procedure In Detail: After informed consent was obtained, patient brought to the operating room, pre pped and draped in the usual sterile fashion. After adequate anesthesia was achieved, a supraumbilic al area was anesthetized with 0.25% Marcaine, sharply incised, and a 5-mm trocar was introduced in th e abdomen without evidence of complication. Insufflation was obtained to 15 mmHg at this time. Ther e was no injury to vital structures upon entry into the abdomen. Additional trocar site was chosen i n the epigastrium. This was similarly anesthetized, sharply incised, and a 5-mm trocar was introduce d in the abdomen without evidence of complication. The umbilical trocar was then up-sized to a 12 mm under direct visualization without evidence of complication. Additional trocar chosen in the right upper quadrant. This was similarly anesthetized, sharply incised, and a 5-mm trocar was introduced i n the abdomen without evidence of complication. Patient was positioned head-up right side up positio n. Ratcheted grasper was used to grasp the patient's gallbladder, placed towards the patient's right shoulder. Significant inflammatory changes as described above were appreciated. These were taken d own using electrocautery off the lateral aspect of the gallbladder and bluntly down to the Jesse p ouch of the gallbladder. The cystic duct and cystic artery were both identified and a critical view of safety was obtained in the anterior direction. Using a 30-degree angle scope, I was able to easil y visualize the cystic duct and cystic artery, the L2 structure into the gallbladder. These were bot h cleared using a [place] retractor and the critical view of safety was obtained one last time. Tit anium clips were then brought and doubly placed on the proximal side and singly on the distal side of both the cystic duct and cystic artery. Endo Tunde were then used to ligate the 2 above structures without evidence of complication. There was no leakage from the clipped locations. The gallbladder was removed from the hepatic fossa without evidence of complication. There was minimal bleeding and minimal hemostatic maneuvers required on the gallbladder fossa, which easily controlled the bleeding and kept it to a minimum. The gallbladder was then placed in an EndoCatch bag, removed the umbilica l trocar, and sent off for pathologic examination. The abdomen was then re-insufflated at this time. The area was inspected and copiously irrigated multiple times. Clips were found to be in good posi tion without any evidence of leakage. The gallbladder bed required no additional hemostatic maneuver s. The area was copiously irrigated multiple times and cleared by suction and the area was inspected one last time. The omentum was then packed back into the right upper quadrant. Patient was then po sitioned in neutral position. The umbilical trocar was then removed. The umbilical trocar site was then closed using a Aditya-Donna suture passer with 0 Vicryl in interrupted fashion with good appr oximation of tissues. The abdomen was then completely desufflated under direct visualization without evidence of complication. All trocars were removed. All skin incisions were copiously irrigated an d closed with a 4-0 Monocryl in a running fashion. Dermabond was placed over the top. Patient yajaira ated the procedure well without evidence of complication, transferred in good condition. All counts were correct at the end of the case. ALISON/JERED Voice ID: [id number] Report ID: [id number]
[2019-01-30] MEDS: NA CHLORIDE 0.9% 1,000 ML IV SCH (00:13)
[2019-01-30] MEDS: PIPER/TAZO/NS 3.375gm 3.375 GM/100 ML BAG IVPB SCH ×3 (00:13→17:16)
[2019-01-30 06:08] LABS: Albumin 3.3 g/dL (3.4-5.0); Bilirubin Total 1.5 mg/dL (0.2-1.0); Magnesium 1.8 mg/dL (1.8-2.4); Phosphorus 2.8 mg/dL (2.5-4.9); Potassium 3.8 mmol/L (3.5-5.1); Protein, Total 6.7 g/dL (6.4-8.2)
[2019-01-30] MEDS: ENOXAPARIN 40 MG/0.4 ML SQ SCH (08:32)
--- NOTE | 2019-01-30 08:54 | P.PN ---
Subjective Date of Service: 01/30/19 Chief Complaint: Acute cholecystitis Subjective: No C/O voiced She report soreness at the laparoscopic incision sites. She has been afebrile. LFTs and bilirubin have trended up today. Physical Examination - Vital Signs Temperature: 98.9 F Blood Pressure: 137/62 Pulse: 89 Respirations: 15 Pulse Ox (%): 95 - Physical Exam General: Alert, In no apparent distress, Oriented x3 HEENT: Mucous membr. moist/pink Neck: Supple, JVD not distended Respiratory: Clear to auscultation bilaterally, Normal air movement Cardiovascular: No edema, Regular rate/rhythm, Normal S1 S2 Gastrointestinal: Normal bowel sounds, Soft and benign, Non-distended Musculoskeletal: No swelling Integumentary: No rashes - Studies Microbiology Data (last 24 hrs): 01/28/19 01:40 Clean Catch Urine Rankin Count - Final >100,000 CFU/ML. 01/28/19 01:40 Clean Catch Urine - Final Klebsiella Pneumoniae Assessment And Plan - Current Problems (Diagnosis) (1) Acute cholecystitis Current Visit: Yes Status: Acute (2) DM2 (diabetes mellitus, type 2) Current Visit: Yes Status: Acute (3) Elevated LFTs Current Visit: Yes Status: Acute - Plan HIDA scan highly suggestive of acute cholecystitis. Laparoscopic cholecystectomy performed today. LFT have trended up. She will need an MRCP to evaluate for common bile duct for stones. She desires to go home today. Continue IV antibiotics for now. Monitor LFT. Pain management as needed. Dr. Rios to follow.
[2019-01-30] MEDS ORDERED: POTASSIUM CL SA 10 MEQ TAB PO ONE (09:00)
[2019-01-30] MEDS ORDERED: MAGNESIUM SULFATE 1 gm IVPB 1 GM/100 ML BAG IV ONE (09:00)
--- NOTE | 2019-01-30 10:16 | P.PN ---
Subjective Date of Service: 01/30/19 Chief Complaint: Acute cholecystitis Patient feels very well, mild pain at trochar sites Physical Examination - Vital Signs Temperature: 98.9 F Blood Pressure: 137/62 Pulse: 89 Respirations: 15 Pulse Ox (%): 95 - Physical Exam General: Alert, In no apparent distress, Cooperative HEENT: Mucous membr. moist/pink Respiratory: Clear to auscultation bilaterally Gastrointestinal: Other (soft, mild appropriate TTP, ND, incision clean and dry) - Studies Microbiology Data (last 24 hrs): 01/28/19 01:40 Clean Catch Urine [place] Count - Final >100,000 CFU/ML. 01/28/19 01:40 Clean Catch Urine - Final Klebsiella Pneumoniae Assessment And Plan - Plan s/p laparoscopic cholecystectomy POD1 - rising LFTs - will get HIDA scan - serial exams - serial LFTs - NPO until after HIDA, then clears and advance to bland diet
--- NOTE | 2019-01-30 13:00 | RAD REPORT ---
EXAM DESCRIPTION: NM - Hepatobiliary System Imagin - 01/30/2019 12:41 pm CLINICAL HISTORY: Abdominal pain, possible choledocholithiasis, laparoscopic cholecystectomy January 28 COMPARISON: HIDA scan January 28 TECHNIQUE: The patient was administered 6.2 mCi Tc99m Choletec . Imaging of the right upper quadrant was performed initially for up to 60 minutes. FINDINGS: There is homogeneous uptake of radiopharmaceutical throughout the liver. There is no delay in visualization of the biliary tree or duodenum. Trace amount of reflux into the stomach is a normal variant. No evidence for bile leak. IMPRESSION: Normal post cholecystectomy HIDA scan.
[2019-01-30] MEDS ORDERED: POTASSIUM 25 MEQ EFFERV TAB PO ONE (14:00)
[2019-01-31] MEDS: PIPER/TAZO/NS 3.375gm 3.375 GM/100 ML BAG IVPB SCH ×2 (00:25→08:32)
[2019-01-31] MEDS: NA CHLORIDE 0.9% 1,000 ML IV SCH (05:06)
[2019-01-31 06:13] LABS: Albumin 3.2 g/dL (3.4-5.0); Bilirubin Total 1.4 mg/dL (0.2-1.0); Potassium 4.3 mmol/L (3.5-5.1); Protein, Total 6.8 g/dL (6.4-8.2)
[2019-01-31] MEDS: ENOXAPARIN 40 MG/0.4 ML SQ SCH (08:32)
--- NOTE | 2019-01-31 10:46 | P.DS ---
Admission Date: 01/28/19 Discharge Date: 01/31/19 Primary Care Provider: Dr. Vaca([place], [place]) Disposition: ROUTINE DISCHARGE Discharge Condition: GOOD Reason for Admission: Acute cholecystitis Consultations: Surgery-Dr. Rios Procedures: HIDA scan: FINDINGS: Liver demonstrates prompt radiotracer uptake. No activity is seen within the gallbladder throughout the examination. Radiotracer activity is seen within small bowel. IMPRESSION: No radiotracer activity visualized within the gallbladder probably indicating acute cholecystitis Operative Note: Date of procedure: 01/29/2019 Surgeon: Dr. Corey Rios Preop diagnosis: Acute cholecystitis Postop diagnosis: Acute cholecystitis Primary procedure: Laparoscopic cholecystectomy Complications none Medical Problem List: Abdominal pain secondary to acute cholecystitis status post laparoscopic cholecystectomy Elevated liver functions secondary to above Diabetes mellitus type 2 [id number], diet-controlled Brief History of Present Illness: 73-year-old female presented to the emergency room with abdominal pain. Patient found to have acute cholecystitis. Patient admitted for further evaluation and treatment. Hospital Course: Patient presented with right upper quadrant abdominal pain. Patient found to have acute cholecystitis. Patient was admitted and further evaluated by surgery. HIDA scan revealed acute cholecystitis is well. Surgery was recommended. Patient had laparoscopic cholecystectomy without complication. Patient did well post operatively. Patient had elevated liver function which improved during her stay. No need for MRCP was necessary as per surgery. At discharge she is without significant abdominal pain, nausea and vomiting. Patient will be discharged home. Patient will continue with post operative instructions. No heavy lifting, pushing or pulling. Recommend follow up with surgery within 1 week to follow up this hospitalization and continue her care. Patient with diabetes mellitus type 2. She is diet controlled. Patient will continue with her current diet. Recommend blood sugars to remain less than 140 fasting and less than 200 after meals. Further adjustment can be done by her PCP. Vital Signs/Physical Exam: Temp Pulse Resp BP Pulse Ox 97.2 F 72 18 137/63 97 01/31/19 08:00 01/31/19 08:00 01/31/19 08:00 01/31/19 08:00 01/31/19 08:00 General: Alert, In no apparent distress, Oriented x3, Cooperative HEENT: Atraumatic Neck: Supple Respiratory: Clear to auscultation bilaterally, Normal air movement Cardiovascular: Normal pulses, Regular rate/rhythm Gastrointestinal: Normal bowel sounds, Soft and benign, Non-distended, No tenderness, No masses, No rebound, No guarding Musculoskeletal: No erythema, No tenderness, No warmth Integumentary: No tenderness/swelling, No erythema, No warmth, No cyanosis Neurological: Normal speech, Normal strength at 5/5 x4 extr, Normal tone, Normal affect Laboratory Data at Discharge: WBC 8.4 K/uL (4.3-10.9) D 01/29/19 04:22 Hgb 14.1 g/dL (12.0-15.0) 01/29/19 04:22 Hct 40.9 % (36.0-45.0) 01/29/19 04:22 Plt Count 329 K/uL (152-406) 01/29/19 04:22 PT 12.0 SECONDS (9.5-12.5) 01/28/19 00:10 INR 1.02 01/28/19 00:10 Sodium 142 mmol/L (136-145) 01/31/19 05:19 Potassium 4.3 mmol/L (3.5-5.1) 01/31/19 05:19 BUN 7 mg/dL (7-18) 01/31/19 05:19 Creatinine 0.83 mg/dL (0.55-1.3) 01/31/19 05:19 Glucose 115 mg/dL (74-106) H 01/31/19 05:19 Phosphorus 2.8 mg/dL (2.5-4.9) 01/30/19 05:11 Magnesium 2.0 mg/dL (1.8-2.4) 01/31/19 05:19 Total Bilirubin 1.4 mg/dL (0.2-1.0) H 01/31/19 05:19 AST 72 U/L (15-37) H D 01/31/19 05:19 ALT 198 U/L (12-78) H D 01/31/19 05:19 Alkaline Phosphatase 240 U/L (45-117) H 01/31/19 05:19 Lipase 128 U/L (73-393) 01/28/19 00:10 Patient Discharge Instructions: 1. Recommend follow up with her PCP within 1 week to follow up this hospitalization. 2. Patient presented with right upper quadrant abdominal pain. Patient found to have acute cholecystitis. Patient was admitted and further evaluated by surgery. HIDA scan revealed acute cholecystitis is well. Surgery was recommended. Patient had laparoscopic cholecystectomy without complication. Patient did well post operatively. Patient had elevated liver function which improved during her stay. No need for MRCP was necessary as per surgery. At discharge she is without significant abdominal pain, nausea and vomiting. Patient will be discharged home. Patient will continue with post operative instructions. No heavy lifting, pushing or pulling. Recommend follow up with surgery(Dr. Rios: go to [email or web address] to fill out and PRINT patient packet prior to follow up - CALL [phone] For follow up, DO NOT CALL [phone]). within 1 week to follow up this hospitalization and continue her care. 3. Patient with diabetes mellitus type 2. She is diet controlled. Patient will continue with her current diet. Recommend blood sugars to remain less than 140 fasting and less than 200 after meals. Further adjustment can be done by her PCP. Diet: [place] Activity: No lifting more than 10 lbs Followup: Corey Rios MD [ACTIVE - CAN ADMIT] - Time spent managing pt's care (in minutes): 55
--- NOTE | 2019-01-31 12:20 | RAD REPORT ---
EXAM DESCRIPTION: CT - Abdomen Pelvis Wo Contrast - 01/28/2019 4:40 am CLINICAL HISTORY: ABD PAIN TECHNIQUE: Contiguous axial images obtained through the abdomen and pelvis without IV contrast. Caprice nal and sagittal reformatted images were provided. This exam was performed according to our departmental dose-optimization program, which includes autom ated exposure control, adjustment of the mA and/or kV according to patient size and/or use of iterati ve reconstruction technique. COMPARISON: None available for comparison. FINDINGS: Lung bases: Scattered bilateral subsegmental atelectasis/pleural parenchymal scar. The hea rt is mildly enlarged. Coronary artery calcification. Small hiatal hernia. Liver: Grossly unremarkable Gallbladder and biliary system: Suggestion for small gallstones within a mildly distended gallbladder . No gallbladder wall thickening. Questionable subtle infiltrative changes in the pericholecystic fat . Pancreas: Mild pancreatic parenchymal atrophy. Spleen: Unremarkable Adrenals: Unremarkable Kidneys: No calculi. No hydronephrosis. Bowel: Moderate stool. No obstruction. Colonic diverticula without adjacent inflammatory change. Appendix: Normal caliber appendix. No findings to suggest acute appendicitis. Urinary bladder: The urinary bladder is distended. Reproductive: There has been a hysterectomy. No adnexal cysts or masses are identified. Lymph nodes: No pathologically enlarged lymph nodes. Peritoneum: No focal fluid collection. No free air. Vessels: Mild atherosclerotic disease. No abdominal aortic aneurysm. Abdominal wall: Tiny fat-containing umbilical hernia. Bones: Multilevel spondylosis. No acute fracture. IMPRESSION: 1. Gallstones within a mildly distended gallbladder. Questionable subtle infiltrative changes in the pericholecystic fat in the setting of early acute cholecystitis. Consider ultrasound f or further evaluation. 2. Other findings as above. Electronically signed by: Devi Robertson MD 01/28/2019 1:51 AM CDT Due to temporary technical issues with the PACS/Fluency reporting system, reports are being signed by the in house radiologist as a courtesy to ensure prompt reporting. The interpreting radiologist is f ully responsible for the content of the report.
[2019-01-31 13:30] VITALS: BP 128/71; TEMP 97.7
[2019-01-31 16:04] VITALS: O2SAT 97
== END 2019-01-31 14:05 | disposition home or self-care (01) | DRG 419 ==
LOC: ER 23:48 → ERHOLD 01-28 02:56 → 2ND 01-28 03:23
PROVIDERS: ADMIT Hospitalist; ATTEND Hospitalist
PROC: 0FT44ZZ Resection of Gallbladder, Percutaneous Endoscopic Approach (ICD-10-PCS; principal; 2019-01-29 09:45)
DX: K81.0 Acute cholecystitis (principal); E11.9 Type 2 diabetes mellitus without complications; B96.1 Klebsiella pneumoniae [K. pneumoniae] as the cause of diseases classified elsewhere; N30.90 Cystitis, unspecified without hematuria
CPT/HCPCS: 36415; 71045; 74176; 78226; 80048; 80053; 80076; 81003; 81015; 82962; 83690; 83735; 83880; 84100; 84484; 85025; 85610; 87077; 87086; 87088; 87186; 88304; 93005; 96361; 96365; 96375; 99285; A9537; J0696; J1170; J1650; J2175; J2250; J2405; J2543; J2704; J2710; J3010; J3475; J7030; J7040; J7120